=== PATIENT | female | born 1995 | race Caucasian/White ===

== ENCOUNTER 2022-09-26 17:51 | Emergency (ER) | payer MEDICAID, SELFPAY ==
[2022-09-26 17:53] VITALS: BP 141/107; PULSE 141; RESP 16; TEMP 36.1; O2SAT 97; BMI 21.7
--- NOTE | 2022-09-26 18:08 | EKG12_ITS ---
Test Reason : DYSRHYTHMIA Blood Pressure : / mmHG Vent. Rate : 106 BPM Atrial Rate : 106 BPM P-R Int : 178 ms QRS Dur : 088 ms QT Int : 342 ms P-R-T Axes : 073 081 048 degrees QTc Int : 454 ms Sinus tachycardia Otherwise normal ECG Confirmed by ANUPAM GODDARD, ASHANTI ([id number]), tape editor LAYTON MACEDO ([id number]) on 09/28/2022 11:40:50 AM Referred By: LUCI Confirmed By:ASHANTI BO MD
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
[2022-09-26 18:32] LABS: Absolute Lymphocyte Count 2.59 X10^3/uL (0.83-4.51); Absolute Neutrophil Count 4.4 X10^3/uL (2.0-7.7); Basophil# 0.07 X10^3/uL; Basophil% 0.9 % (0-1); Eosinophil# 0.05 X10^3/uL; Eosinophils% 0.7 % (0-5); Hematocrit 45.9 % (37-47); Lymphocyte # 2.59 X10^3/ul (0.83-4.51); Lymphocyte % 34.7 % (19-41); Mean Corp Hgb Conc 34.9 g/dL (32-36); Mean Corpuscular Hgb 31.4 pg (27.0-32.0); Mean Corpuscular Volume 90.2 fL (81-99); Mean Platelet Vol. 8.5 fl (6.2-12.0); Monocyte# 0.34 X10^3/uL; Monocyte% 4.6 % (0-10); NRBC Flagged by Analyzer 0 % (0-5); Neutrophil # 4.41 X10^3/uL (2.7-7.7); Platelet Count 282 K/mm3 (150-450); RBC Distribution Width CV 12.2 % (11.6-14.6); Red Blood Count 5.09 M/mm3 (4.2-5.4); White Blood Count 7.5 K/mm3 (4.4-11.0)
[2022-09-26 18:45] LABS: Anion Gap 7 (5-15); BUN 5 mg/dL (7-18); BUN/Creat Ratio 5.7 RATIO (10-20); Calcium,Total 8.7 mg/dL (8.5-10.1); Chloride 114 mmol/L (98-107); Creatinine, Serum 0.88 mg/dL (0.55-1.02); EST Glomerular Filtration Rate 83 mL/min (>60); Est Glom Filt Rate - Afr Amer 101 mL/min (>60); Estimated Creatinine Clearance 95.03 ml/min; Glucose 101 mg/dL (74-106); Potassium 3.5 mmol/L (3.5-5.1); Sodium Level 145 mmol/L (136-145)
[2022-09-26 19:00] LABS: Internal QC Validated? YES +Cl - CLEAR BKGD; Pregnancy, Serum, hCG Quali. NEGATIVE Negative
[2022-09-26 19:06] LABS: Amphetamine Urine VISTA NEGATIVE (<1000 ng/mL); Barbiturate Urine VISTA NEGATIVE (< 200 ng/mL); Benzodiazepine Urine VISTA NEGATIVE (< 200 ng/mL); Cocaine Urine VISTA NEGATIVE (< 300 ng/mL); Ecstacy Urine VISTA NEGATIVE (< 500 ng/mL); Methadone Urine VISTA NEGATIVE (< 300 ng/mL); PCP Urine VISTA NEGATIVE (< 25 ng/mL); THC Urine VISTA POSITIVE (< 50 ng/mL); Vista UDS pH Range 6
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
[2022-09-26 19:55] VITALS: RESP 16
[2022-09-26 20:17] VITALS: RESP 16
[2022-09-26] MEDS: Lidocaine 2% (20 ml mdv) 20 ML Vial INFILT (23:59)
[2022-09-27] VITALS (9 sets, daily range): BP systolic 114–137; BP diastolic 74–83; PULSE 68–83; RESP 15–16; TEMP 36.6; O2SAT 99
[2022-09-27] MEDS: Diphth,Pertuss(Acell),Tet Vac 0.5 ML Vial IM (03:40)
--- NOTE | 2022-09-27 08:46 | NURSING ---
FAXED LABS TO [facility]. CALLED AND TOLD SHAKA. THEY WILL LOOK AT THEM AND CALL US BACK
--- NOTE | 2022-09-27 09:23 | CM.ED ---
FABIAN called Crisis to check on the status of placement. Per office secretary at [facility] all crisis employees are out of the office and she recommended calling back in 45 minutes. Shannon STEVENS
--- NOTE | 2022-09-27 09:48 | NURSING ---
[facility] HERE AND IN ROOM
--- NOTE | 2022-09-27 11:23 | CM.ED ---
FABIAN called Sofia at [facility]. Sofia said that Crissy did the assessment and the MD wants inpatient psych for patient. Patient has no insurance so they will need to do a single case agreement (SCA). FABIAN updated ED Charge, Abbi. Shannon STEVENS
--- NOTE | 2022-09-27 12:35 | CM.ED ---
Crissy from crisis called. They are referring patient to [facility] on Single Case Agreement. Shannon STEVENS
--- NOTE | 2022-09-27 13:20 | CM.ED ---
SW updated patient that crisis is looking for placement for her. Patient tearful. Shannon STEVENS
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
--- NOTE | 2022-09-27 16:35 | CASEMGMT ---
FABIAN went into patient's room in attempt to update her. She was asleep. FABIAN updated ruben Fu, that patient has been accepted at [facility]. Shannon STEVENS
--- NOTE | 2022-09-27 17:34 | CM.ED ---
FABIAN called Lin and requested that she call for ambulance transport for patient. FABIAN received call from Lin. Lin spoke to Merritt at [facility]. Merritt said that [facility] has to set up transport and then they will speak to Lin about billing. FABIAN spoke to Yas, community center coordinator. She called [facility] but [facility] called Lin regarding payment and thus the transport has not been scheduled yet. FABIAN to follow Shannon STEVENS
--- NOTE | 2022-09-27 18:11 | CM.ED ---
Lin advised that transport had been secured by [facility] with pickup being 9-10pm. FABIAN updated patient. Shannon STEVENS
[2022-09-28] VITALS: PULSE 76; RESP 16; O2SAT 99
--- NOTE | 2022-09-28 00:27 | ED.RN ---
report called to [facility]
== END 2022-09-28 00:12 ==
PROVIDERS: Emergency Provider Emergency Medicine; Visit Provider Emergency Medicine
DX: F32.A Depression, unspecified (principal); F10.229 Alcohol dependence with intoxication, unspecified; F17.210 Nicotine dependence, cigarettes, uncomplicated; F12.90 Cannabis use, unspecified, uncomplicated; R45.851 Suicidal ideations; S51.811A Laceration without foreign body of right forearm, initial encounter; Y90.4 Blood alcohol level of 80-99 mg/100 ml; X58.XXXA Exposure to other specified factors, initial encounter
CPT/HCPCS: 12002; 80048; 80307; 82077; 84703; 85025; 87811; 93005; 99282; A4216